=== PATIENT | female | born 1975 | race Caucasian/White ===

== ENCOUNTER → 2016-07-25 | Day surgery (SDC) | payer BC, OTHER ==
[2016-07-23 11:22] VITALS: Ht 170.2 cm; Wt 122.7 kg
[~2016-07-25] VITALS: Ht 170.2 cm; Wt 122.7 kg
[~2016-07-25] MED LIST: ADAL40KI SC; AMT/25 PO; BIPAP; CLR10 PO; CYAN10005 SL; FEXO1TAB46 PO; FRN PO; PARO37.5 PO; PROPOFOL IV EMULSION 10 MG/ML 20 ML VIAL IV ONE; SODIUM CHLORIDE 0.9% 500ML 500 ML IV ONE
--- NOTE | 2016-07-25 15:13 | Endo History and Physical ---
History & Physical Date of Service: Jul 25, 2016. Chief Complaint: ulcerative colitis Referring Physician: Dr. Benitez History of Present Illness 41 yo CF who presents for Colonoscopy secondary to ulcerative colitis. Past Medical History Gastrointestinal Disorder, Anxiety, Reflux, Sleep Apnea Past Surgical History Hx Cardiac Surgery: No Hx Internal Defibrillator: No Hx Pacemaker: No Hx Abdominal Surgery: Yes (LAPOROSCOPY W/SPLEENECTOMY) Hx of Implantable Prosthesis: No Hx Post-Op Nausea and Vomiting: No Hx Cancer Surgery: No Hx Thoracic Surgery: No Hx Orthopedic: No Hx Urinary Tract Surgery: No Family History None Social History Smoking Status: Never Smoker Hx Substance Use: No Hx Alcohol Use: Yes (OCCASSIONAL) Allergies Coded Allergies: Aspirin (Verified Adverse Reaction, Unknown, PLATELET DISORDER, 07/23/16) Uncoded Allergies: ALMONDS (Allergy, Mild, UNKNOWN FROM DR MARY HART RECORD, 09/14/14) ORANGES (Allergy, Mild, UNKNOWN ENTERED FROM DR MARY HURST H&P, 09/14/14) ONIONS (Allergy, Unknown, ., 05/24/15) Current Medications Reported Home Medications Medications Dose Route/Sig Max Daily Dose Days Date Category Dose Instructions Claritin (Loratadine) 10 Mg Tab 10 Mg PO HS 07/23/16 Reported Humira Pen (Adalimumab) 40 Mg/0.8 Ml Kit 1 Dose SC [id number] 07/23/16 Reported Amitriptyline HCl 25 Mg Tab 1 Tab PO HS 07/23/16 Reported [Bipap] 1 HS 07/23/16 Reported Vitamin B-12 (Cyanocobalamin) 1,000 Mcg Tab 1,000 Mcg SL QAM 05/24/15 Reported Paxil Cr (Paroxetine Hcl) 37.5 Mg Tab 37.5 Mg PO QAM 05/24/15 Reported Chayito (Fexofenadine Hcl) 180 Mg Tab 180 Mg PO QAM 09/16/14 Reported Fiorinal * (Butalbital/Aspirin/Caffeine) Tab 1 Tab PO DAILY PRN 03/08/07 Reported 2030 AND 0030 ONE EACH TIME Vital Signs Weight (Kilograms): 122.73 Height (Feet): 5 Height (Inches): 7 Date Time Temp Pulse Resp B/P Pulse Ox O2 Delivery O2 Flow Rate FiO2 07/25/16 14:20 36.9 85 20 147/94 97 Room Air Physical Exam General Appearance: WD/WN, no apparent distress Respiratory/Chest: Auscultation: breath sounds normal Cardiovascular: Heart Auscultation: RRR Abdomen: Bowel Sounds: normal Inspection & Palpation: soft, non-distended, no tenderness, guarding & rebound Assessment and Plan Assessment: 41 yo CF who presents for Colonoscopy secondary to ulcerative colitis. Plan: Proceed with colonoscopy.
--- NOTE | 2016-07-25 15:39 | Discharge Instructions ---
Endoscopy Patient Instructions Date / Procedure(s) Performed Jul 25, 2016. Colonoscopy Allergy Information Coded Allergies: Aspirin (Verified Adverse Reaction, Unknown, PLATELET DISORDER, 07/23/16) Uncoded Allergies: ALMONDS (Allergy, Mild, UNKNOWN FROM DR MARY HART RECORD, 09/14/14) ORANGES (Allergy, Mild, UNKNOWN ENTERED FROM DR MARY HURST H&P, 09/14/14) ONIONS (Allergy, Unknown, ., 05/24/15) Discharge Date / Findings Jul 25, 2016. Left sided ulcerative colitis with mild to moderate disease activity s/p biopsies Right sided colon biopsies Poor bowel prep Medication Instructions OK to resume all medications today as prescribed Reported Home Medications Medications Dose Route/Sig Max Daily Dose Days Date Category Dose Instructions Claritin (Loratadine) 10 Mg Tab 10 Mg PO HS 07/23/16 Reported Humira Pen (Adalimumab) 40 Mg/0.8 Ml Kit 1 Dose SC [id number] 07/23/16 Reported Amitriptyline HCl 25 Mg Tab 1 Tab PO HS 07/23/16 Reported [Bipap] 1 HS 07/23/16 Reported Vitamin B-12 (Cyanocobalamin) 1,000 Mcg Tab 1,000 Mcg SL QAM 05/24/15 Reported Paxil Cr (Paroxetine Hcl) 37.5 Mg Tab 37.5 Mg PO QAM 05/24/15 Reported Chayito (Fexofenadine Hcl) 180 Mg Tab 180 Mg PO QAM 09/16/14 Reported Fiorinal * (Butalbital/Aspirin/Caffeine) Tab 1 Tab PO DAILY PRN 03/08/07 Reported 2030 AND 0030 ONE EACH TIME Provider Instructions Activity Restrictions - No exercising or heavy lifting for 24 hours. - Do not drink alcohol the day of the procedure. - Do not drive a car or operate machinery until the day after the procedure. - Do not make any important decisions or sign important papers in 24 hours after the procedure. Following Day: - Return to full activity which may include returning to work/school. Diet Start your diet with liquids and light foods (jello, soup, juice, toast). Then eat your usual diet if not nauseated. Treatment For Common After Affects For mild abdominal pain, bloating, or excessive gas: - Rest - Eat lightly - Lie on right side Follow-Up Information Follow-up with Dr. Benitez as scheduled Anesthesia Information What You Should Know You have had a procedure that required some medicine to reduce anxiety and discomfort. This treatment is called moderate sedation. After receiving the treatment, you may be sleepy, but you will be able to breathe on your own. The effects of the treatment may last for several hours. Follow these instructions along with Activity/Diet recommendations noted above: * Do NOT do anything where dizziness or clumsiness would be dangerous. * Rest quietly at home today, then you can be up and about tomorrow. * Have a responsible person stay with you the rest of today. * You may have had an I.V. today. If so, you may take the dressing off later today. Recommendations Call your doctor if: * Trouble breathing * Continuous vomiting for more than 24 hours * Temperature above 101 degrees * Severe abdominal pain or bloating * Pain not relieved by pain medicine ordered * There is increased drainage or redness from any incision * A large amount of rectal bleeding greater than 2-3 tablespoons. (If you had a polyp/s removed or have hemorrhoids, a small amount of blood - from the rectum is to be expected.) * You have any unanswered questions or concerns. IN THE EVENT OF A SERIOUS EMERGENCY, GO TO THE NEAREST EMERGENCY ROOM Your discharge instructions were prepared by provider Tino Llamas. Patient Instructions Signature Page Nuvia Carmichael Patient (or Guardian) Signature/Date: I have read and understand the instructions given to me by my caregivers. Caregiver/RN/Doctor Signature/Date: The above-named patient and/or guardian has received patient instructions on this date. + Original Patient Signature Page (only) stays with chart. Please make copy for patient.
--- NOTE | 2016-07-25 15:49 | Anesthesiology Progress Note ---
Anesthesia Post Op Note Date & Time Jul 25, 2016 at 15:48 Vital Signs Pain Intensity: 0 Vital Signs Past 12 Hours Date Time Temp Pulse Resp B/P Pulse Ox O2 Delivery O2 Flow Rate FiO2 07/25/16 15:41 36.9 89 20 138/89 100 Room Air 07/25/16 14:20 36.9 85 20 147/94 97 Room Air Notes Mental Status: alert / awake / arousable Nausea / Vomiting: adequately controlled Pain: adequately controlled Airway Patency, RR, SpO2: stable & adequate BP & HR: stable & adequate Hydration State: stable & adequate Anesthetic Complications: no major complications apparent
--- NOTE | 2016-07-25 15:52 | GI REPORT ---
Procedure Date: 07/25/2016 3:15 PM Procedure: Colonoscopy Indications: Left-sided chronic ulcerative colitis Medicines: Monitored Anesthesia Care Complications: No immediate complications. Estimated Blood Loss: Estimated blood loss: none. Procedure: Pre-Anesthesia Assessment: - Prior to the procedure, a History and Physical was performed, and patient medications and allergies were reviewed. The patient's tolerance of previous anesthesia was also reviewed. The risks and benefits of the procedure and the sedation options and risks were discussed with the patient. All questions were answered, and informed consent was obtained. Prior Anticoagulants: The patient has taken no previous anticoagulant or antiplatelet agents. ASA Grade Assessment: II - A patient with mild systemic disease. After reviewing the risks and benefits, the patient was deemed in satisfactory condition to undergo the procedure. After I obtained informed consent, the scope was passed under direct vision. Throughout the procedure, the patient's blood pressure, pulse, and oxygen saturations were monitored continuously. The scope was introduced through the anus and advanced to the terminal ileum. The colonoscopy was performed without difficulty. The patient tolerated the procedure well. The quality of the bowel preparation was poor. The terminal ileum, ileocecal valve, appendiceal orifice, and rectum were photographed. Findings: Inflammation characterized by erythema and loss of vascularity was found in a continuous and circumferential pattern from the rectum to the descending colon. This was moderate in severity. Biopsies were taken with a cold forceps for histology. Several biopsies were obtained with cold forceps for histology in the Right side in the ascending colon and transverse colon. Impression: - Inflammation was found from the rectum to the descending colon secondary to left-sided ulcerative colitis. Biopsied. - Several biopsies were obtained in the ascending colon. Recommendation: - Resume previous diet. - Continue present medications. - Repeat colonoscopy for surveillance based on pathology results. - Return to GI office as previously scheduled. Tino Llamas DO 07/25/2016 3:51:14 PM This report has been signed electronically. Note Initiated On: 07/25/2016 3:15 PM
[2016-07-25 16:09] VITALS: BP 144/94; PULSE 89; O2SAT 100
== END | disposition home or self-care (01) ==
LOC: C.GI 13:56
PROVIDERS: ATTEND Internal Medicine
DX: K51.50 Left sided colitis without complications (principal); K62.89 Other specified diseases of anus and rectum; K21.9 Gastro-esophageal reflux disease without esophagitis; G47.30 Sleep apnea, unspecified; F41.9 Anxiety disorder, unspecified; Z98.890 Other specified postprocedural states; Z88.5 Allergy status to narcotic agent; Z88.8 Allergy status to other drugs, medicaments and biological substances

== ENCOUNTER → 2016-12-26 | Outpatient (CLI) | payer OTHER ==
[~2016-12-26] MED LIST changes: -PROPOFOL IV EMULSION 10 MG/ML 20 ML VIAL IV ONE; -SODIUM CHLORIDE 0.9% 500ML 500 ML IV ONE
== END | disposition home or self-care (01) ==
LOC: C.PAPS 16:19
PROVIDERS: ATTEND Internal Medicine
DX: Z01.419 Encounter for gynecological examination (general) (routine) without abnormal findings (principal)

== ENCOUNTER → 2016-12-27 | Outpatient (CLI) | payer OTHER ==
[2016-12-27 12:28] LABS: BASO % 0.4 %; BASO ABS # 0.04 K/uL (0-0.2); COMPLETE YES; EOS % 2.4 %; HEMATOCRIT 37.5 % (37-47); IG% 0.4 %; LYMPH % 35.4 %; LYMPH ABS # 3.62 K/uL (1.2-3.4); MEAN CELL VOLUME 93.1 fL (80-100); MEAN CORPUSCULAR HEMOGLOBIN 30.5 pg (25-34); MEAN CORPUSCULAR HGB CONC 32.8 g/dl (32-36); MEAN PLATELET VOLUME 10.3 fL (7.4-10.4); MONO % 9.6 %; NEUT % 51.8 %; PLATELET COUNT 473 K/uL (130-400); RED BLOOD COUNT 4.03 M/uL (4.2-5.4); WHITE BLOOD COUNT 10.24 K/uL (4.8-10.8)
[2016-12-27 13:31] LABS: ALT/SGPT 26 U/L (12-78); AST/SGOT 21 U/L (15-37); BLOOD UREA NITROGEN 10 mg/dl (7-18); BUN/CREATININE RATIO 11.7 (10-20); CALCIUM 8.9 mg/dl (8.5-10.1); CARBON DIOXIDE 25 mmol/L (21-32); CHLORIDE 105 mmol/L (98-107); CREATININE 0.85 mg/dl (0.60-1.20); GLUCOSE 75 mg/dl (70-99); POTASSIUM 3.8 mmol/L (3.5-5.1); SODIUM 140 mmol/L (136-145)
[2016-12-27 13:42] LABS: ALB/GLOB RATIO 0.7 (0.9-2); ALKALINE PHOSPHATASE 67 U/L (45-117); C-REACTIVE PROTEIN 0.46 mg/dl (0-0.29)
[2016-12-28 16:22] LABS: ANTI-SS-A <1.0 NEG AI (<1.0 NEG); ANTI-SS-B <1.0 NEG AI (<1.0 NEG)
[2016-12-31 13:36] LABS: QUANTIF TB AG-NIL 0.01 IU/ML; QUANTIFERON NIL 0.03 IU/ML
== END | disposition home or self-care (01) ==
LOC: C.LAB 09:58
PROVIDERS: ATTEND Registered Nurse
DX: R53.83 Other fatigue (principal)

== ENCOUNTER → 2017-02-12 | Outpatient (CLI) | payer OTHER ==
[2017-02-12 11:14] LABS: THYROID STIMULATING HORMONE 7.26 uIu/ml (0.300-4.500)
[2017-02-13 17:13] LABS: MICROSOMAL AB <1 IU/ML (<9)
== END | disposition home or self-care (01) ==
LOC: C.LAB1850 09:32
PROVIDERS: ATTEND Registered Nurse
DX: R53.83 Other fatigue (principal)

== ENCOUNTER → 2017-02-12 | Outpatient (CLI) | payer OTHER ==
--- NOTE | 2017-02-13 12:45 | MAMMOGRAPHY REPORT ---
BILATERAL FIRST EVER DIGITAL SCREENING MAMMOGRAM TOMOSYNTHESIS WITH CAD: 02/12/2017 CLINICAL HISTORY: Baseline examination. Patient has no complaints. TECHNIQUE: Bilateral breast tomosynthesis in addition to standard 2D mammography was performed. A re peat 2-D right CC view was also performed. Current study was also evaluated with a Computer Aided De tection (CAD) system. COMPARISON: No prior exams were available for comparison. BREAST COMPOSITION: There are scattered areas of fibroglandular density in both breasts. FINDINGS: There is a 9 mm focal asymmetry in the upper outer posterior right breast approximate 9:00 -10:00 axis. An 8 mm focal asymmetry in the upper outer posterior left breast approximate 1:00 axis. Additional spot compression tomosynthesis views and possibly ultrasound is recommended bilaterally. There is a benign intramammary lymph node in the upper outer far posterior right breast. No other melia picious mass, architectural distortion or cluster of microcalcifications is seen. IMPRESSION: ACR BI-RADS CATEGORY 0: INCOMPLETE EVALUATION: NEED ADDITIONAL IMAGING EVALUATION The focal asymmetry in each upper outer quadrant needs additional imaging evaluation. The patient will be called to schedule an appointment. Approximately 10% of breast cancers are not detected with mammography. A negative mammographic report should not delay biopsy if a clinically suggestive mass is present. Beatrice Rojas M.D. ay/:02/12/2017 16:23:13 Emblem Fuser Tender: Vanessa Montes, [facility] letter sent: Addl Imaging 0 BI-RADS Code: ACR BI-RADS Category 0: Incomplete Evaluation: Need Additional Imaging Evaluation
== END | disposition home or self-care (01) ==
LOC: C.MAMM 09:43
PROVIDERS: ATTEND Internal Medicine
DX: Z12.31 Encounter for screening mammogram for malignant neoplasm of breast (principal); N64.89 Other specified disorders of breast

== ENCOUNTER → 2017-02-20 | Outpatient (CLI) | payer OTHER ==
--- NOTE | 2017-02-20 13:43 | MAMMOGRAPHY REPORT ---
BILATERAL DIGITAL DIAGNOSTIC MAMMOGRAM TOMOSYNTHESIS AND TARGETED BILATERAL ULTRASOUND: 02/20/2017 CLINICAL HISTORY: Bilateral Asymmetries. TECHNIQUE: Spot compression tomosynthesis bilateral CC and MLO views were obtained. COMPARISON: Comparison is made to exam dated: 02/12/2017 mammogram - [facility]. BREAST COMPOSITION: There are scattered areas of fibroglandular density in both breasts. FINDINGS: The spot compression tomosynthesis view of the left breast demonstrates a persistent circum scribed 7.6 x 6.7 mm mass in the upper outer middle one third of the breast. No associated senior java architect ural distortion or microcalcification. Further evaluation with ultrasound was performed. Spot compression views of the right upper outer quadrant demonstrate a 9.4 x 11.0 x 8.7 mm focal asym metry in the upper outer posterior breast. However, on the corresponding tomosynthesis images this a symmetry effaces and has the appearance of normal fibroglandular tissue. No calcifications or associ ated distortion. Targeted ultrasound was performed throughout the lateral right breast, and upper outer quadrant of th e left breast. In the left 2:00 axis, 8 cm from the nipple, there is a parallel hypoechoic circumscr ibed lobulated solid-appearing mass measuring 7.5 x 3.3 x 5.7 mm. Throughout the right lateral breas t, normal fibroglandular tissue is seen without a discrete solid or cystic mass. IMPRESSION: ACR BI-RADS CATEGORY 4B: INTERMEDIATE SUSPICION FOR MALIGNANCY, TARGETED ULTRASOUND ACR BI-RADS CATEGORY 4B: INTERMEDIATE SUSPICION FOR MALIGNANCY 1. Ultrasound guided core biopsy is recommended for an indeterminate solid circumscribed parallel 7. 5 mm mass in the 2:00 left breast, thought to correlate with a persistent mammographic mass. This co uld represent a benign fibroadenoma or complicated cyst. 2. There is a focal asymmetry measuring approximately 11 mm in the upper outer posterior right breas t. Given that this effaces on the corresponding tomosynthesis images and no suspicious sonographic c orrelate was seen, this most likely represents normal overlapping tissue. However, a short interval follow-up right diagnostic mammogram including tomosynthesis images and possible repeat ultrasound is recommended to ensure stability in 6 months, given that no prior exams are available to ensure stabi lity. These results and recommendations were discussed with the patient at the time of the exam. She tenta tively scheduled the left breast biopsy and right breast follow-up appointment prior to leaving our [facility]. Approximately 10% of breast cancers are not detected with mammography. A negative mammographic report should not delay biopsy if a clinically suggestive mass is present. Beatrice Rojas M.D. ay/:02/20/2017 08:40:36 Cell Biologist: Evette NICOLAS(Court)(Jol[place]), [facility] letter sent: Abnormal 4/5 BI-RADS Code: ACR BI-RADS Category 4B: Intermediate Suspicion For Malignancy Ultrasound BI-RADS: ACR BI-RADS Category 4B: Intermediate Suspicion For Malignancy
== END | disposition home or self-care (01) ==
LOC: C.MAMM 07:45
PROVIDERS: ATTEND Internal Medicine
DX: N64.89 Other specified disorders of breast (principal); N63 Unspecified lump in breast

== ENCOUNTER → 2017-02-27 | Outpatient (CLI) | payer OTHER ==
--- NOTE | 2017-02-27 11:02 | Discharge Instructions ---
Discharge Instructions Procedure Procedure Date: Feb 27, 2017. Reason for visit: Left Mass. Discharge Discharge Date: Feb 27, 2017. Discharge Diagnosis: post left breast ultrasound guided cyst aspiration Instructions Activity Recommendations: Additional Limitations (see below) Return to School/Work: no limitations Recommended Home Diet: No Limitations Provider Instructions: ACTIVITY RECOMMENDATIONS: * Rest today. * Resume regular activity in one day. MEDICATIONS: * May take Tylenol or Ibuprofen as needed for pain. DIET: * Resume previous diet. SPECIAL CARE INSTRUCTIONS: Call your doctor if: * Temperature above 101 degrees F. * Pain not relieved by pain medicine ordered. * Increased drainage or redness from incision. * Increasing chest pain or shortness of breath. * Notify your doctor with any questions or concerns. * If you have specific questions or concerns for Breast Radiology, please call us at during normal business hours or Dr. Rojas after hours at . FOLLOW UP VISIT: Follow-up with Referring Physician as scheduled. Allergies Coded Allergies: Aspirin (Verified Adverse Reaction, Unknown, PLATELET DISORDER, 07/23/16) Uncoded Allergies: ALMONDS (Allergy, Mild, UNKNOWN FROM DR MARY HART RECORD, 09/14/14) ORANGES (Allergy, Mild, UNKNOWN ENTERED FROM DR MARY HURST H&P, 09/14/14) ONIONS (Allergy, Unknown, ., 05/24/15) [place] Recommendations: Call your doctor if: * Temperature above 101 degrees * Pain not relieved by pain medicine ordered * There is increased drainage or redness from any incision * You have any unanswered questions or concerns. Your Doctors Instructions noted above were prepared by provider Beatrice Rojas. Patient Signature Section: Patient Instructions Signature Page Nuvia Carmichael Patient (or Guardian) Signature/Date: I have read and understand the instructions given to me by my caregivers. Caregiver/RN/Doctor Signature/Date: The above-named patient and/or guardian has received patient instructions on this date. + Original Patient Signature Page (only) stays with chart. Please make copy for patient.
--- NOTE | 2017-02-27 12:24 | MAMMOGRAPHY REPORT ---
THIS REPORT HAS BEEN AMENDED. ASPIRATION LEFT BREAST: 02/27/2017 CLINICAL HISTORY: Indeterminate lobulated parallel hypoechoic solid versus cystic mass in the 2:00 le ft breast measuring 7.5 x 3.3 x 5.7 mm. Patient presented for ultrasound-guided biopsy versus cyst a spiration. COMPARISON: Comparison is made to exams dated: 02/27/2017 mammogram - [facility], 02/20/2017 ultrasound, 02/20/2017 mammogram, and 02/12/2017 mammogram - [facility]. PATIENT CONSENT: After explaining the risks, benefits and alternatives of the procedure to the patien t, informed consent was obtained verbally and in writing. Specific risks include: bleeding, infection and puncture of adjacent structure. A time out was preformed and the left breast was agreed as the s ite for core biopsy versus cyst aspiration. PROCEDURE DESCRIPTION: The hypoechoic solid versus cystic mass in the 2:00 left breast was identified . 1% lidocaine with and without epinephrine was administered subcutaneously and intraparenchymally as local anesthesia. At the time of lidocaine administration, the mass appeared to slightly flatten or decreased in size, suggesting cystic nature. Then the decision was made to attempt ultrasound-guide d cyst aspiration prior to core biopsy, if this mass is potentially cystic. A 22 gauge needle was ad vanced to the site of the mass. Aspiration was preformed as the needle was removed throughout the mas s, and the cyst decreased to near complete resolution. The fluid was blood-tinged yellow/clear. The final post aspiration image demonstrates just a tiny horizontal hypoechoic slip of fluid remaining i n the left 2:00 breast. The aspirated fluid was sent to the pathology department for cytologic palak sis. Postprocedure left CC and MLO tomosynthesis images were obtained. On the CC view, the circumscribed mass is much less conspicuous. There is minimal residual circumscribed oval mass on the MLO tomosynt hesis images. Therefore, plan to follow-up with repeat tomosynthesis images and possible ultrasound of the left breast at time of diagnostic follow-up in the right breast in 6 months. IMPRESSION: ASPIRATION Status post aspiration to near complete resolution of a cystic mass in the 2:00 left breast. The pos t procedure imaging demonstrates mild residual mass, decreased in size compared to the diagnostic shea mograms. Pending benign cytology results, recommend follow-up bilateral mammograms including tomosynthesis dannie ges and possible repeat ultrasound in 6 months. The patient will receive notification of the pathology results from her referring physician. Beatrice Rojas M.D. ay/:02/27/2017 12:10:21 Coin Box Collector: Mirta FONTANA (R)), [facility] AMENDMENT: 03/20/2017 Beatrice Rojas M.D. Cytology results from the ultrasound-guided cyst aspiration of a hypoechoic mass in the 2:00 left chilo ast yielded benign breast aspirate with apocrine metaplasia and cystic changes. The cytology finding s are consistent with a fibrocystic process. The cytology results are concordant with the imaging ap pearance. Bilateral diagnostic mammograms including tomosynthesis images and possible repeat ultrasound is carolin mmended in 6 months to ensure stability of these findings as well as other findings in the right vick st, described on previous diagnostic mammogram/ultrasound report.
--- NOTE | 2017-02-27 12:24 | MAMMOGRAPHY REPORT ---
UNILATERAL LEFT DIGITAL DIAGNOSTIC MAMMOGRAM TOMOSYNTHESIS: 02/27/2017 CLINICAL HISTORY: Status post ultrasound guided cyst aspiration of a parallel hypoechoic cystic mass in the 2:00 left breast. Please refer to the report from left breast ultrasound guided cyst aspiration performed at the same [facility] for full detail. IMPRESSION: Please refer to the report from left breast ultrasound guided cyst aspiration performed at the same [facility] for full detail. Approximately 10% of breast cancers are not detected with mammography. A negative mammographic report should not delay biopsy if a clinically suggestive mass is present. Beatrice Rojas M.D. ay/:02/27/2017 11:01:19 Switch House Operator: Mirta HOLLINGSWORTH)(M), [facility] BI-RADS Code: n/a
== END | disposition home or self-care (01) ==
LOC: C.MAMM 09:49
PROVIDERS: ATTEND Internal Medicine
DX: N63 Unspecified lump in breast (principal); N60.12 Diffuse cystic mastopathy of left breast

== ENCOUNTER → 2017-05-31 | Outpatient (CLI) | payer OTHER ==
[2017-05-31 14:03] LABS: THYROID STIMULATING HORMONE < 0.005 uIu/ml (0.300-4.500)
== END | disposition home or self-care (01) ==
LOC: C.LAB1850 11:59
PROVIDERS: ATTEND Internal Medicine Endocrinology, Diabetes & Metabolism
DX: E03.9 Hypothyroidism, unspecified (principal)

== ENCOUNTER → 2017-10-12 | Outpatient (CLI) | payer OTHER | END | disposition home or self-care (01) | LOC: C.LAB1850 10:56 | PROVIDERS: ATTEND Internal Medicine Endocrinology, Diabetes & Metabolism | DX: E03.9 Hypothyroidism, unspecified (principal) ==

== ENCOUNTER → 2017-10-21 | Outpatient (CLI) | payer OTHER ==
--- NOTE | 2017-10-22 07:48 | MAMMOGRAPHY REPORT ---
BILATERAL DIGITAL DIAGNOSTIC MAMMOGRAM TOMOSYNTHESIS WITH CAD: 10/21/2017 CLINICAL HISTORY: 42-year-old woman presents for follow-up in both breasts. She underwent ultrasound -guided cyst aspiration for a possible solid versus cystic mass in the 2:00 left breast, 8 cm from th e nipple in February 2017. This was ultimately proven to be cystic in nature and yielded benign cytolo gy results. Also follow-up in the right breast for an 11 mm focal asymmetry in the upper outer quadr ant posteriorly. TECHNIQUE: Bilateral breast tomosynthesis in addition to standard 2D mammography was performed. Curre nt study was also evaluated with a Computer Aided Detection (CAD) system. COMPARISON: Comparison is made to exams dated: 02/27/2017 aspiration, 02/27/2017 mammogram, 02/20/2017 ult rasound, 02/20/2017 mammogram, and 02/12/2017 mammogram - [facility]. BREAST COMPOSITION: There are scattered areas of fibroglandular density in both breasts. FINDINGS: A lobulated and partially circumscribed mass is no longer seen in the upper outer posterior left breast, correlating with the previously aspirated cyst which yielded benign cytology results. Currently, there is the focal asymmetry in the left upper outer quadrant posteriorly, that has the ap pearance of normal fibroglandular tissue. Given slight increased conspicuity comparing to the viraj espinoza's baseline mammogram performed on 02/12/2017, another close follow-up diagnostic mammogram is recomm ended, as the appearance could be due to technical parameters such as compression. No new suspicious masses, areas of distortion or suspicious calcifications are identified in the left breast. Again noted is an 11 mm focal asymmetry in the upper outer right breast posteriorly. This appears st able comparing to the 02/12/2017 mammograms and has the appearance of normal fibroglandular tissue on the tomosynthesis images. No new suspicious masses, calcifications, areas of architectural distortio n or other asymmetries are seen in the right breast. There is a stable intramammary lymph node in th e right upper outer quadrant posteriorly. IMPRESSION: ACR-BI-RADS CATEGORY 3: PROBABLY BENIGN 1. A 7 mm partially circumscribed mass in the left upper outer quadrant is no longer seen, concordan t with prior cyst aspiration which yielded benign cytology results. There is vague focal asymmetry i n the left upper outer quadrant posteriorly, that likely represents normal fibroglandular tissue and may be increased in conspicuity due to technical parameters. A 4-5 month follow-up left diagnostic t omosynthesis mammogram and possible ultrasound is recommended to ensure stability. 2. There is stable focal asymmetry measuring 11 mm in the right upper outer quadrant posteriorly, th at has the appearance of normal fibroglandular tissue on the tomosynthesis images. Given that this a symmetry was identified on the patient's baseline mammogram, another 4-5 month follow-up is recommend ed to ensure longer stability. These results and recommendations were discussed with the patient at the time of the exam. Approximately 10% of breast cancers are not detected with mammography. A negative mammographic report should not delay biopsy if a clinically suggestive mass is present. Beatrice Rojas M.D. ay/:10/21/2017 11:06:12 Environmental Technology Professor: Vanessa HOLLINGSWORTH)([place]), [facility] letter sent: Follow Up Recommended 3 BI-RADS Code: ACR-BI-RADS Category 3: Probably Benign
== END | disposition home or self-care (01) ==
LOC: C.MAMM 09:57
PROVIDERS: ATTEND Internal Medicine
DX: Z09 Encounter for follow-up examination after completed treatment for conditions other than malignant neoplasm (principal); N63.21 Unspecified lump in the left breast, upper outer quadrant; N64.89 Other specified disorders of breast

== ENCOUNTER → 2018-02-12 | Outpatient (CLI) | payer OTHER | END | disposition home or self-care (01) | LOC: C.LAB1850 15:35 | PROVIDERS: ATTEND Physician Assistant | DX: K51.90 Ulcerative colitis, unspecified, without complications (principal) ==